=== PATIENT | female | born 1980 | race Caucasian/White ===

== ENCOUNTER 2016-10-30 10:29 | Emergency (ER) | payer OTHER ==
[2016-10-30] MEDS ORDERED: OXYCODONE/APAP 5/325MG COMBO TABLET PO ONE (10:36)
--- NOTE | 2016-10-30 10:36 | PDOC ---
History of Present Illness - General Chief Complaint: Injury Stated Complaint: RIGHT ANKLE & CALF PAIN Time Seen by Provider: 10/30/16 10:36 History Source: Patient, Old Records Exam Limitations: No Limitations - History of Present Illness Initial Comments: 10/30/16 10:53 36-year-old female with no significant past medical history who presents to the emergency Department with complaints of right ankle pain status post slip and fall on the ice this morning just prior to arrival to the emergency department. The patient landed on her blood tox but did not strike her head. There was no loss of consciousness. The patient was unable to bear weight on the extremity. Past History - Past Medical History Allergies/Adverse Reactions: Allergies Allergy/AdvReac Type Severity Reaction Status Date / Time No Known Allergies Allergy Verified 10/30/16 10:32 Home Medications: Ambulatory Orders Oxycodone HCl/Acetaminophen [Percocet 5-325 mg Tablet] 1 - 2 tab PO Q4H #14 tablet MDD 8 10/30/16 Review of Systems - Review of Systems Able to Perform ROS?: Yes Is the patient limited Panamanian proficient: No Constitutional: No: Symptoms Reported HEENTM: No: Symptoms Reported Respiratory: No: Symptoms reported Cardiac (ROS): No: Symptoms Reported ABD/GI: No: Symptoms Reported : No: Symptoms Reported Musculoskeletal: Yes: See HPI Integumentary: No: Symptoms Reported Neurological: No: Symptoms reported *Physical Exam - Physical Exam Comments: 10/30/16 10:53 GENERAL: Well developed, well nourished. Awake and alert. No acute distress. HEENT: Normocephalic, atraumatic. PERRLA, EOMI. No conjunctival pallor. Sclera are non- icteric. Moist mucous membranes. Oropharynx is clear. NECK: Supple. Full ROM. No JVD. No lymphadenopathy. CARDIOVASCULAR: Regular rate and rhythm. No murmurs, rubs, or gallops. Distal pulses are 2+ and symmetric. PULMONARY: No evidence of respiratory distress. Lungs clear to auscultation bilaterally. No wheezing, rales or rhonchi. ABDOMINAL: Soft. Non-tender. Non-distended. No rebound or guarding. No organomegaly. Normoactive bowel sounds. MUSCULOSKELETAL Normal range of motion at all joints. No bony deformities or tenderness. No CVA tenderness. EXTREMITIES: There is swelling of the right ankle with ecchymnosis and tenderness to thelateral malleolar region. There are +2 palpale distal pulses and sensation is intact. Motor exam is limited by pain. SKIN: Warm and dry. Normal capillary refill. No rashes. No jaundice. NEUROLOGICAL: Alert, awake, appropriate. Cranial nerves 2-12 intact. Grossly non-focal exam. PSYCHIATRIC: Cooperative. Good eye contact. Appropriate mood and affect. ED Treatment Course - LABORATORY CBC & Chemistry Diagram: 10/30/16 11:30 10/30/16 11:30 Medical Decision Making - Medical Decision Making 10/30/16 10:54 36-year-old female with right ankle pain status post mechanical fall this morning. Differential diagnosis includes but is not limited to: Echo fracture, dislocation, contusion, sprain. Plan: 1. Pain management 2. Plain films of the right foot ankle and tib-fib 3. Orthopedics consult as needed pending results of radiographic imaging 4. Observe and reevaluate 10/30/16 12:04 Addendum: Plain films show an oblique fracture of the tbia and fibula with medial displacement. Ortho consult has been called. Pre-op labs have been ordered. Pending ortho disposition recommendations. *DC/Admit/Observation/Transfer Diagnosis at time of Disposition: Fall from slipping on ice, Fracture of tibia with fibula, right, closed - Discharge Dispostion Disposition: HOME Condition at time of disposition: Stable Admit: No - Prescriptions Prescriptions: Oxycodone HCl/Acetaminophen [Percocet 5-325 mg Tablet] 1 - 2 tab PO Q4H #14 tablet MDD 8 - Referrals Referrals: Evan Linton MD [Staff Physician] - Raf Barron MD [Staff Physician] - - Patient Instructions Additional Instructions: You have a fracture of your tibia and fibula bones. You have been placed in a splint--please do not take it off. Follow-up with orthopedics tomorrow as scheduled. You have been prescribed percocet for pain--take 1-2 tablets every 4 -6 hours as needed for pain. Use the crutches for ambulatory assistance. Return to the ED if your symptoms persist, worsen or new symptoms arise.
[2016-10-30 10:50] VITALS: BP 139/80; PULSE 75; TEMP 97.7; BMI 31.9
[2016-10-30] MEDS ORDERED: morphine CARPU-JECT 4 MG/1 ML DISP.SYRIN IVPUSH ONE ×2 (11:49→13:11)
[2016-10-30] MEDS ORDERED: morphine CARPU-JECT 10 MG/1 ML DISP.SYRIN ONE (11:49)
[2016-10-30 12:01] LABS: BASOPHIL 1.5 % (0-2.0); EOSINOPHIL 9.6 % (0-4.5); MCHC 33.4 g/dl (32.0-36.0); MEAN CELL VOLUME 92.9 fl (80-96); MEAN PLT VOLUME 8.8 fl (7.5-11.1); NEUTROPHILS 54.7 % (42.8-82.8); PLATELET COUNT 221 K/MM3 (134-434); RDW 11.9 % (11.6-15.6); WHITE BLOOD COUNT 7.3 K/mm3 (4.0-10.0)
[2016-10-30 12:16] LABS: ACTIVATED PTT 29.6 SECONDS (24.0-38.9); CALCIUM 9.5 mg/dl (8.4-10.2); CREATININE 0.7 mg/dl (0.6-1.3); MAGNESIUM 1.7 mg/dL (1.8-2.4); PHOSPHOROUS 2.8 mg/dl (2.5-4.6)
[2016-10-30 12:20] LABS: INR 0.95 (0.82-1.09); PROTHROMBIN TIME (PATIENT) 10.7 SEC (10.2-13.0)
--- NOTE | 2016-10-30 13:40 | CONSULT ---
Consult Consult Specialty:: orthopedics Reason for Consultation:: right leg pain - History of Present Illness Chief Complaint: Right leg pain History of Present Illness: 36y/o female complains of right lower leg pain since this morning. She states she slipped and fell on ice and immediately had pain. She was taken to the ER where she had x-rays and was found to have a fracture of the tibia and fibula. She denies any numbness or tingling in the leg. The pain is worse with movement and better with rest. No other associated, aggravating or relieving factors. - History Source History Provided By: Patient - Alcohol/Substance Use Hx Alcohol Use: No - Smoking History Smoking history: Never smoked Home Medications - Allergies Allergies/Adverse Reactions: Allergies Allergy/AdvReac Type Severity Reaction Status Date / Time No Known Allergies Allergy Verified 10/30/16 10:32 - Home Medications Home Medications: Ambulatory Orders Oxycodone HCl/Acetaminophen [Percocet 5-325 mg Tablet] 1 - 2 tab PO Q4H #14 tablet MDD 8 10/30/16 Review of Systems - Review of Systems Constitutional: reports: No Symptoms Eyes: reports: Photophobia HENT: reports: No Symptoms Neck: reports: No Symptoms Cardiovascular: reports: No Symptoms Respiratory: reports: No Symptoms Gastrointestinal: reports: No Symptoms Genitourinary: reports: No Symptoms Breasts: reports: No Symptoms Reported Musculoskeletal: reports: Extremity Pain Integumentary: reports: No Symptoms Neurological: reports: No Symptoms Endocrine: reports: No Symptoms Hematology/Lymphatic: reports: No Symptoms Psychiatric: reports: No Symptoms Physical Exam Vital Signs: Vital Signs Temperature 97.7 F 10/30/16 10:31 Pulse Rate 75 10/30/16 10:31 Respiratory Rate 30 H 10/30/16 10:31 Blood Pressure 139/80 10/30/16 10:31 O2 Sat by Pulse Oximetry (%) 100 10/30/16 10:31 Constitutional: Yes: Well Nourished, No Distress, Calm HENT: Yes: Atraumatic, Normocephalic Extremities: Yes: Other (Right lower extremity. No open wounds. Mild edema of the lower leg and ankle. No erythema or ecchymosis. no sign of infection. Tenderness over the distal tibia and fibula. No tenderness over the proximal tibia or fibula. No foot tenderness. No calf tenderness. Pain with motion of the foot/ankle. Sensation intact. Distal pulses +2. Compartments soft.) Labs: CBC, BMP 10/30/16 11:30 10/30/16 11:30 Imaging - Results X-ray: Report Reviewed, Image Reviewed (Fracture of the distal tibia in fibula with displacement.) Assessment/Plan Right distal tibia and fibula fracture -Discussed case with Dr. Barron. Pt is to follow up tomorrow in office. -AO Splint placed. -Keep extremity elevated -Pain control
== END 2016-10-30 14:21 | disposition home or self-care (01) ==
LOC: FER 10:29
PROC: 3E033NZ Introduction of Analgesics, Hypnotics, Sedatives into Peripheral Vein, Percutaneous Approach (ICD-10-PCS; principal; 2016-10-30)
PROC: 2W3QX1Z Immobilization of Right Lower Leg using Splint (ICD-10-PCS; 2016-10-30)
DX: S82.391A Other fracture of lower end of right tibia, initial encounter for closed fracture (principal); W00.0XXA Fall on same level due to ice and snow, initial encounter; Y93.89 Activity, other specified; Y92.89 Other specified places as the place of occurrence of the external cause
CPT/HCPCS: 36415; 73590-TC-RT; 73610-TC-RT; 80048; 83735; 84100; 84703; 85025; 85610; 85730; 86850; 86900; 86901; 99283-25

== ENCOUNTER 2016-11-15 10:24 | Day surgery (SDC) | payer OTHER ==
[2016-11-09 11:51] VITALS: BMI 31.9
[2016-11-15] MEDS ORDERED: ROPIVACAINE HCL 0.5% 30ML VIAL ONE (12:21)
[2016-11-15] MEDS ORDERED: MIDAZOLAM HCL 2 MG/2 ML SINGLE DOSE VIAL ONE ×4 (12:21→15:12)
[2016-11-15] MEDS ORDERED: PROPOFOL 20 ML ONE ×9 (12:48→15:36)
[2016-11-15] MEDS ORDERED: BUPIVACAINE HCL/PF 0.5% (5MG/ML) 10 ML VIAL ONE (12:50)
[2016-11-15] MEDS ORDERED: ceFAZolin SODIUM 1 GM VIAL ONE (13:03)
[2016-11-15] MEDS ORDERED: ONDANSETRON 4 MG/2 ML VIAL ONE (13:09)
[2016-11-15] MEDS ORDERED: DEXAMETHASONE SOD PHOSPHATE 4 MG/1 ML VIAL ONE (13:09)
[2016-11-15] MEDS ORDERED: ONDANSETRON 4 MG/2 ML VIAL IVPUSH PRN (16:42)
[2016-11-15] MEDS ORDERED: oxyCODONE HCL 5 MG TABLET PO PRN (16:42)
[2016-11-15] MEDS ORDERED: LACTATED RINGERS SOLUTION 1,000 ML IV SCH (16:45)
[2016-11-15 18:07] VITALS: PULSE 77; TEMP 99
[2016-11-15 18:33] VITALS: BP 144/84
--- NOTE | 2016-11-16 10:03 | OP ---
DATE OF OPERATION: 11/15/2016 PREOPERATIVE DIAGNOSIS: Right distal tibial and fibular fracture. POSTOPERATIVE DIAGNOSIS: Right distal tibial and fibular fracture. PROCEDURE: Right distal tibia and fibula open reduction internal fixation. SURGEON: Raf Barron MD EP TECHNOLOGIST: Robyn Vang, whose skillful assistance was necessary for the safe and timely performance of this procedure. ANESTHESIA TYPE: General and spinal. POSTOPERATIVE CONDITION: Stable. COMPLICATIONS: None. IMPLANTS: [employer], distal fibular plate with associated 3.5-mm locking and nonlocking screws, as well as [place] medial distal tibial plate, also with associated 3.5-mm locking and nonlocking screws, and one 4.0 cancellous screw. TOURNIQUET TIME: 2 hours 10 minutes. BLOOD LOSS 100 mL. INDICATIONS: This is a pleasant woman who suffered a slip and fall, having a distal tibial and fibular fracture. Given the displaced nature of the fracture, operative management was suggested. We discussed the option of closed treatment with casting with resultant malunion. We reviewed operative risks in detail including bleeding, infection, neurovascular injury, need for further surgery including possible removal of hardware, postoperative pain or stiffness, post-traumatic arthrosis. We discussed risks of maluinion or nonunion. We reviewed the medical risks such as heart attack, stroke, DVT, PE, and . We reviewed perioperative use of antibiotics as well as perioperative use of DVT prophylaxis. I addressed all the patients questions. She voiced understanding and elected to proceed. DESCRIPTION OF PROCEDURE: The patient was brought to the operating room where spinal anesthesia was administered. The right lower extremity was then prepped and draped in the usual sterile fashion. A preoperative dose of antibiotics was given, and the usual time-out procedure was performed. At this point, an incision was planned out initially over the distal fibula. The limb was now exsanguinated, and the tourniquet was inflated to 250 mmHg. The incision was now carried down through skin to subcutaneous tissue. Blunt spreading was used to expose the fracture site. The fracture was widely displaced. The fracture was debrided of any soft callus. It was irrigated. Using reduction forceps, it was brought back into near anatomic alignment. True anatomic alignment was not possible mostly medially due to comminution present. A lag screw was placed at this point in the anterior to posterior direction to secure it, the fracture. The distal fibular plate was now contoured to the distal fibula. It was then affixed proximally using nonlocking screws and distally using locking screws as well as one nonlocking screw to provide close approximation of the plate to the bone. Both fracture reduction and hardware placement were examined both fluoroscopically and visually and both were satisfactory. The fascia over the fibula was now closed. This was done using 0 Vicryl. Now, attention was turned to the tibial side. An incision was planned out in the mid medial portion extending from the tip of the medial malleolus proximal to the fracture site. This was carried down through skin to subcutaneous tissue. Blunt spreading was used to expose the saphenous neurovascular bundle which was protected. The periosteum was now incised to expose the fracture site of the tibia. Again, soft callus was debrided, and the site was irrigated. A [place] elevator was passed through the fracture site in order to liberate the fragments from the surrounding soft tissue. Utilizing 2-mm K-wires, joysticks, as well as using fracture reduction forceps, the fracture was able to be brought into near anatomic reduction. The pointed reduction forceps were used from medial to lateral was passed through a small incision made laterally which was then spread down to bone prior to placing the pointed clamp to avoid injury to the superficial peroneal nerve. The fracture was now held in place with additional K-wires. A long periosteal elevator was slid up subperiosteally along the medial aspect of the tibia to provide a landing spot for the plate. The plate was now chosen to bridge the fracture site. The plate was now split subperiosteally. The plate was affixed in place using additional K-wires. The plate was then secured initially to the metaphyseal region with the cortical screw and then additionally fixed just above the plafond with the cancellous screw again to secure the plate down to the bone. Plate placement was verified fluoroscopically in 2 planes. The proximal holes in the plate were now secured with the percutaneous technique. The hole was first identified under fluoroscopic guidance. An incision was made in the skin over the most proximal hole, and blunt spreading was carried down to the plate. The locking guide was now inserted also utilizing the K-wire fixation device, and the K-wire was inserted to hold the plate proximally. Two additional cortical screws were now placed in this fashion. The K-wire was then removed, and this also was drilled and replaced with a cortical screw. At this point, the entire construct was examined both visually and fluoroscopically. Both fracture reduction and hardware placement were satisfactory. The wounds were copiously irrigated again. The medial side was closed subcutaneously using 3-0 Vicryl, and then, 3-0 nylon in the skin with interrupted mattress sutures. The lateral side was also approximated subcutaneously using 3-0 Vicryl followed by 4-0 and 3-0 nylon on the skin. Tourniquet was let down prior to wound closure as 2 hours and 10 minutes had elapsed. The patient was placed in sterile dressings. A short-leg well-padded cast was applied. She was transferred to recovery room in stable condition. Paul [id number]
== END 2016-11-15 18:30 | disposition home or self-care (01) ==
LOC: FASU 10:24
PROVIDERS: ATTEND Orthopaedic Surgery Sports Medicine
PROC: 0QSL04Z Reposition Right Tarsal with Internal Fixation Device, Open Approach (ICD-10-PCS; 2016-11-15)
PROC: 0JBN0ZZ Excision of Right Lower Leg Subcutaneous Tissue and Fascia, Open Approach (ICD-10-PCS; principal; 2016-11-15 13:17)
DX: S82.61XA Displaced fracture of lateral malleolus of right fibula, initial encounter for closed fracture (principal); S82.391A Other fracture of lower end of right tibia, initial encounter for closed fracture; W01.0XXA Fall on same level from slipping, tripping and stumbling without subsequent striking against object, initial encounter; Y93.01 Activity, walking, marching and hiking; Y92.9 Unspecified place or not applicable
CPT/HCPCS: 73610-TC-RT; 84703; 94760

== ENCOUNTER 2017-04-26 21:47 | Emergency (ER) | payer OTHER ==
[2017-04-26 21:53] VITALS: BP 134/89; PULSE 84; TEMP 98.6; BMI 30.4
[2017-04-26] MEDS ORDERED: AZITHROMYCIN 250 MG TABLET (FP) PO ONE (22:01)
--- NOTE | 2017-04-26 22:01 | PDOC ---
History of Present Illness - General Chief Complaint: Ear Problem Stated Complaint: EAR PAIN History Source: Patient Exam Limitations: No Limitations - History of Present Illness Initial Comments: 04/26/17 21:52 This is a 36-year-old female who comes in complaining of right ear pain. Patient denies history of frequent ear infections. Patient denies any fevers or chills. Patient denies any sore throat. Patient took some Tylenol for the pain without relief. Patient denies recent frequent swimming or going in the water. PAST MEDICAL HISTORY: no significant history PAST SURGICAL HISTORY: no significant history FAMILY HISTORY: no pertinant history SOCIAL HISTORY: Pt lives with family and is employed. MEDICATIONS: reviewed ALLERGIES: As per nursing notes Review of Systems General: No fevers or chills, no weakness, no weight loss HEENT: No change in vision. No sore throat,. Right ear pain CardioVascular: No chest pain or shortness of breath Respiratory:No cough, or wheezing. Gastrointestinal: no nausea, vomitting, diarrhea or constipation, No rectal bleeding Genitourinary: No dysuria, hematuria, or frequency Musculoskeletal: No joint or muscle pain or swelling Neurologic: No headache, vertigo, dizziness or loss of consciousness Psychiatric: nor depression Skin: No rashes or easy bruising Endocrine: no increased thirst or abnormal weight change Allergic: no skin or latex allergy All other systems reviewed and normal GENERAL: The patient is awake, alert, and fully oriented, in no acute distress. HEAD: Normal with no signs of trauma. EYES: Pupils equal, round and reactive to light, extraocular movements intact, sclera anicteric, conjunctiva clear. EARS: Left ear is normal, right ear the tympanic membrane is dull but intact. There is erythema of the tympanic membrane. EXTREMITIES: Normal range of motion, no edema. NEUROLOGICAL: Normal speech, normal gait. PSYCH: Normal mood, normal affect. SKIN: Warm, Dry, normal turgor, no rashes or lesions noted. Assessment and plan: This is a 36-year-old female with a right otitis media. Patient given some Percocet for pain and started on azithromycin. Patient given prescription for azithromycin will follow-up with her primary care if not improved in a couple a days. Past History - Past Medical History Allergies/Adverse Reactions: Allergies Allergy/AdvReac Type Severity Reaction Status Date / Time No Known Allergies Allergy Verified 10/30/16 10:32 Home Medications: Ambulatory Orders Azithromycin 250 mg PO DAILY #4 tablet 04/26/17 Ibuprofen [Advil -] 800 mg PO ONCE 04/26/17 Anemia: No Asthma: No Cancer: No Cardiac Disorders: No CVA: No COPD: No CHF: No Dementia: No Diabetes: No GI Disorders: No Disorders: No HTN: No Hypercholesterolemia: No Liver Disease: No Seizures: No Thyroid Disease: No - Surgical History Abdominal Surgery: No Appendectomy: No Cardiac Surgery: No Cholecystectomy: No Lung Surgery: No Neurologic Surgery: No Orthopedic Surgery: No - Psycho/Social/Smoking Cessation Hx Anxiety: No Suicidal Ideation: No Smoking History: Never smoked Hx Alcohol Use: No Drug/Substance Use Hx: No Substance Use Type: None Hx Substance Use Treatment: No *DC/Admit/Observation/Transfer Diagnosis at time of Disposition: Otitis media Qualifiers: Otitis media type: unspecified Chronicity: acute Laterality: right - Discharge Dispostion Disposition: HOME Condition at time of disposition: Stable Admit: No - Prescriptions Prescriptions: Azithromycin 250 mg PO DAILY #4 tablet - Patient Instructions Additional Instructions: Take azithromycin 1 tablet a day for the next 4 days. You were given the first tablet this evening take your next tablet tomorrow evening. For the pain take ibuprofen or Tylenol as directed on the bottle In addition to that take a decongestant during the day U can take pseudoephedrine at night you can take nyquil as directed on the bottle. Return to the emergency department immediately with ANY new, persistent or worsening symptoms. Continue any medications as previously prescribed by your physician. You should follow up with your primary doctor as soon as possible regarding today's emergency department visit. . Please make sure your doctor reviews the results of your emergency evaluation. Thank you for coming to the Emergency Department today for your care. It was a pleasure to see you today. Please note that your evaluation is INCOMPLETE until you follow-up with your doctor. .
[2017-04-26] MEDS ORDERED: AZITHROMYCIN 250 MG TABLET (FP) ONE (22:03)
== END 2017-04-26 22:09 | disposition home or self-care (01) ==
LOC: FER 21:47
DX: H66.91 Otitis media, unspecified, right ear (principal)
CPT/HCPCS: 99281-25

== ENCOUNTER 2017-04-29 02:26 | Emergency (ER) | payer OTHER ==
[2017-04-29 02:51] VITALS: BP 138/98; PULSE 85; TEMP 97.9; BMI 30.4
--- NOTE | 2017-04-29 03:19 | PDOC ---
History of Present Illness - General History Source: Patient Exam Limitations: No Limitations - History of Present Illness Initial Comments: 04/29/17 02:50 The patient is a 36 year old female, with no significant past medical history, who presents to the emergency department with right ear pain beginning approx. two days ago. The patient reports the ear pain is constant and nothing makes it better or worse. The patient states she visited [facility] emergency department for the right ear pain two days ago and was prescribed Azithromycin with mild relief. The patient reports associated symptoms of headache secondary to the right ear pain. The patient denies recent swimming. She denies recent fevers, chills or dizziness. She denies recent nausea, vomit, diarrhea or constipation. She denies recent dysuria, frequency, urgency or hematuria. She denies recent chest pain or shortness of breath. Allergies: NKA Past surgical history: None reported. Social history: Nonsmoker. Denies EtOH use and recreational drug use. <Ez Martinez - Last Filed: 04/29/17 05:25> <Yvrose Pacheco - Last Filed: 04/29/17 06:18> - General Chief Complaint: Pain Stated Complaint: EAR PAIN Time Seen by Provider: 04/29/17 02:49 Past History <Ez Martinez - Last Filed: 04/29/17 05:25> - Past Medical History Anemia: No Asthma: No Cancer: No Cardiac Disorders: No CVA: No COPD: No CHF: No Dementia: No Diabetes: No GI Disorders: No Disorders: No HTN: No Hypercholesterolemia: No Liver Disease: No Seizures: No Thyroid Disease: No Other medical history: Pt denies - Surgical History Abdominal Surgery: No Appendectomy: No Cardiac Surgery: No Cholecystectomy: No Lung Surgery: No Neurologic Surgery: No Orthopedic Surgery: No - Psycho/Social/Smoking Cessation Hx Anxiety: No Suicidal Ideation: No Smoking History: Never smoked Information on smoking cessation initiated: No Hx Alcohol Use: No Drug/Substance Use Hx: No Substance Use Type: None Hx Substance Use Treatment: No <Yvrose Pacheco - Last Filed: 04/29/17 06:18> - Past Medical History Allergies/Adverse Reactions: Allergies Allergy/AdvReac Type Severity Reaction Status Date / Time No Known Allergies Allergy Verified 04/29/17 02:39 Home Medications: Ambulatory Orders Azithromycin 250 mg PO DAILY #4 tablet 04/26/17 Ibuprofen [Advil -] 800 mg PO ONCE 04/26/17 Ciprofloxacin HCl/Dexameth [Ciprodex Otic Suspension] 3 drop BID #1 bottle Review of Systems - Review of Systems Comments:: 04/29/17 02:51 GENERAL/CONSTITUTIONAL: No fever or chills. No weakness. HEAD, EYES, EARS, NOSE AND THROAT: +Ear pain. No change in vision. No sore throat. CARDIOVASCULAR: No chest pain or shortness of breath. RESPIRATORY: No cough, wheezing, or hemoptysis. GASTROINTESTINAL: No nausea, vomiting, diarrhea or constipation. GENITOURINARY: No dysuria, frequency, or change in urination. MUSCULOSKELETAL: No joint or muscle swelling or pain. No neck or back pain. SKIN: No rash NEUROLOGIC: +Headache. No vertigo, loss of consciousness, or change in strength/ sensation. ENDOCRINE: No increased thirst. No abnormal weight change. HEMATOLOGIC/LYMPHATIC: No anemia, easy bleeding, or history of blood clots. ALLERGIC/IMMUNOLOGIC: No hives or skin allergy. <Ez Martinez - Last Filed: 04/29/17 05:25> *Physical Exam - Vital Signs Last Vital Signs Temp Pulse Resp BP Pulse Ox 97.9 F 85 18 138/98 99 04/29/17 02:39 04/29/17 02:39 04/29/17 02:39 04/29/17 02:39 04/29/17 02:39 <Ez Martinez - Last Filed: 04/29/17 05:25> - Vital Signs Last Vital Signs Temp Pulse Resp BP Pulse Ox 97.9 F 85 18 138/98 99 04/29/17 02:39 04/29/17 02:39 04/29/17 02:39 04/29/17 02:39 04/29/17 02:39 - Physical Exam Comments: GENERAL: Awake, alert, and fully oriented, in no acute distress HEAD: No signs of trauma EYES: PERRLA, EOMI, sclera anicteric, conjunctiva clear ENT: R EAC erythematous, edematous, partially obscuring the TM. R TM erythematous. No pain on movement of the auricle. Auricles normal inspection, hearing grossly normal, nares patent, oropharynx clear without exudates. Moist mucosa. +R mastoid tenderness. NECK: Normal ROM, supple, no lymphadenopathy, JVD, or masses EXTREMITIES: Normal range of motion, no edema. No clubbing or cyanosis. No cords, erythema, or tenderness NEUROLOGICAL: Cranial nerves II through XII grossly intact. Normal speech, normal gait SKIN: Warm, Dry, normal turgor, no rashes or lesions noted. <Yvrose Pacheco - Last Filed: 04/29/17 06:18> ED Treatment Course - LABORATORY CBC & Chemistry Diagram: 04/29/17 03:40 04/29/17 03:40 <Ez Martinez - Last Filed: 04/29/17 05:25> - LABORATORY CBC & Chemistry Diagram: 04/29/17 03:40 04/29/17 03:40 <Yvrose Pacheco - Last Filed: 04/29/17 06:18> *DC/Admit/Observation/Transfer - Attestations Scribe Attestion: 04/29/17 04:42 Documentation prepared by Ez Martinez, acting as medical records technician for Yvrose Pacheco MD. <Ez Martinez - Last Filed: 04/29/17 05:25> - Discharge Dispostion Admit: No <Yvrose Pacheco - Last Filed: 04/29/17 06:18> Diagnosis at time of Disposition: Otitis externa Qualifiers: Otitis externa type: unspecified type Chronicity: acute Laterality: right Qualified Code(s): H60.501 - Unspecified acute noninfective otitis externa, right ear - Discharge Dispostion Disposition: HOME Condition at time of disposition: Stable - Prescriptions Prescriptions: Ciprofloxacin HCl/Dexameth [Ciprodex Otic Suspension] 3 drop BID #1 bottle
[2017-04-29] MEDS ORDERED: SODIUM CHLORIDE 1,000 ML IV STA (03:20)
[2017-04-29] MEDS ORDERED: KETOROLAC TROMETHAMINE 30 MG/1 ML VIAL IVPUSH ONE (03:23)
[2017-04-29] MEDS ORDERED: KETOROLAC TROMETHAMINE 30 MG/1 ML VIAL ONE (03:32)
[2017-04-29 03:46] LABS: EOSINOPHIL 6.6 % (0-4.5); MCH 32.2 pg (25.7-33.7); MCHC 34.2 g/dl (32.0-36.0); MEAN PLT VOLUME 8.6 fl (7.5-11.1); NEUTROPHILS 55.5 % (42.8-82.8); PLATELET COUNT 250 K/MM3 (134-434); WHITE BLOOD COUNT 8.5 K/mm3 (4.0-10.0)
[2017-04-29 04:15] LABS: ALK PHOS 63 U/L (45-117); ANION GAP 6 (8-16); BILIRUBIN,TOTAL 0.4 mg/dL (0.2-1.0); CO2 28 mmol/L (21-32); CREATININE 0.7 mg/dL (0.55-1.02); GLUCOSE,RANDOM 119 mg/dL (74-106); SGOT/AST 14 U/L (15-37); SGPT/ALT 29 U/L (12-78); TOT PROT 7.6 g/dl (6.4-8.2)
== END 2017-04-29 06:31 | disposition home or self-care (01) ==
LOC: JER 02:26
PROC: 3E0333Z Introduction of Anti-inflammatory into Peripheral Vein, Percutaneous Approach (ICD-10-PCS; principal; 2017-04-29)
PROC: 3E0337Z Introduction of Electrolytic and Water Balance Substance into Peripheral Vein, Percutaneous Approach (ICD-10-PCS; 2017-04-29)
DX: H60.501 Unspecified acute noninfective otitis externa, right ear (principal)
CPT/HCPCS: 36415; 70480-TC; 80053; 84703; 85025; 99281-25

== ENCOUNTER 2021-03-25 19:25 | Emergency (ER) | payer OTHER ==
[2021-03-25 19:33] VITALS: BP 127/85; PULSE 60; TEMP 98.9; BMI 30.4
== END 2021-03-25 21:19 | disposition home or self-care (01) ==
LOC: FER 19:25
DX: G44.209 Tension-type headache, unspecified, not intractable (principal)
CPT/HCPCS: 99283-25